=== PATIENT | female | born 1985 ===

== ENCOUNTER 2016-12-26 11:22 | Emergency (ER) | payer MEDICARE, OTHER ==
[2016-12-26 11:22] VITALS: BMI 22.6
[2016-12-26 11:41] VITALS: O2SAT 100
--- NOTE | 2016-12-26 12:24 | C.PDOC ---
History Of Present Illness Patient is a 31 y/o female, whose PMHx includes seizures, and asthma, presents to the ED for evaluation of left foot pain. Patient states she fell 1 month ago from a seizure, and was been seen by a physician recently due to persistent pain who prescribed her Percocet, and referral for MRI. Patient notes her foot MRI is scheduled for 12/28/16. However, patient states she fell again yesterday, reinjuring the same foot, which prompted her to visit ED today. Otherwise, denies any fever, numbness/weakness, or any other associated symptoms at this time. Time Seen by Provider: 12/26/16 11:50 Chief Complaint (Nursing): Lower Extremity Problem/Injury History Per: Patient History/Exam Limitations: no limitations Onset/Duration Of Symptoms: Days (1 month) Current Symptoms Are (Timing): Still Present Recent travel outside of the [place]: No Additional History Per: Patient - Ankle/Foot Description Of Injury: Fell Past Medical History Reviewed: Historical Data, Nursing Documentation, Vital Signs Vital Signs: Last Vital Signs Temp 98.0 F 12/26/16 14:18 Pulse 74 12/26/16 14:18 Resp 18 12/26/16 14:18 BP 124/80 12/26/16 14:18 Pulse Ox 100 12/26/16 14:26 - Medical History PMH: Asthma, COPD (TRACHEOSTOMY), Depression, Seizures Surgical History: Cholecystectomy - [facility] Procedures REPLACE TRACH TUBE (01/24/13) Family History: States: Unknown Family Hx - Social History Hx Tobacco Use: Yes (trying to quit, down to 4 cigarettes per day) Hx Alcohol Use: No Hx Substance Use: No - Immunization History Hx Tetanus Toxoid Vaccination: Yes Hx Influenza Vaccination: Yes (2014) Hx Pneumococcal Vaccination: Yes Review Of Systems Except As Marked, All Systems Reviewed And Found Negative. Constitutional: Negative for: Fever, Chills Musculoskeletal: Positive for: Foot Pain (left) Neurological: Negative for: Weakness, Numbness Physical Exam - Physical Exam Appears: Non-toxic, In Acute Distress (painful distress) Skin: Normal Color, Warm, Dry Respiratory: Other (trach tube in place, no signs of infection) Extremity: Normal ROM, Tenderness (diffuse tenderness to left foot), No Calf Tenderness, Capillary Refill (< 2 sec.), No Deformity, Swelling (left foot), Other (Baltazar wrap by PMD was removed) Extremity: Bilateral: Normal Color And Temperature, Normal ROM Pulses: Left Dorsalis Pedis: Normal, Right Dorsalis Pedis: Normal Neurological/Psych: Oriented x3, Normal Speech, Normal Cognition, Normal Motor, Normal Sensation ED Course And Treatment O2 Sat by Pulse Oximetry: 100 (on RA) Pulse Ox Interpretation: Normal - Other Rad Left foot x-ray X-Ray: Interpreted by Me, Viewed By Me Interpretation: No fracture or dislocation. Progress Note: Left ankle/foot x-ray ordered and reviewed. Patient was treated with Dilaudid IM in th ER. On reassessment, hector reports improvement of symptoms. Short leg splint applied by CP and checked by me. Crutches and crutch walking instructions were provided by CP. Patient was discharged home with instructions to follow up with orthopedist and to keep her MRI appointment on . Disposition - Disposition Referrals: Mark Izaguirre MD [Staff Provider] - Aaron Lylse DPM [Staff Provider] - Disposition: HOME/ ROUTINE Disposition Time: 13:53 Condition: FAIR Additional Instructions: Follow up with your PMD/Ortho. keep your appointment for MRI on 12/29/15. Return to ED if feel worse. Instructions: Foot Sprain (ED) - Clinical Impression Clinical Impression: Foot pain - PA / MANAGER NUCLEAR / Resident Statement MD/DO has reviewed & agrees with the documentation as recorded. - Scribe Statement The provider has reviewed the documentation as recorded by the Scribe Brad Quiroz All medical record entries made by the Scribe were at my direction and personally dictated by me. I have reviewed the chart and agree that the record accurately reflects my personal performance of the history, physical exam, medical decision making, and the department course for this patient. I have also personally directed, reviewed, and agree with the discharge instructions and disposition.
[2016-12-26 14:20] VITALS: BP 124/80; PULSE 74; RESP 18; TEMP 98
--- NOTE | 2016-12-26 16:57 | RAD ---
PROCEDURE: Left Ankle Radiographs. HISTORY: fall/pain COMPARISON: None FINDINGS: BONES: Normal. No fracture. JOINTS: Normal. No osteoarthritis. Ankle mortise maintained. Talar dome intact SOFT TISSUES: Normal. OTHER FINDINGS: None. IMPRESSION: No evidence of acute fracture or dislocation.
--- NOTE | 2016-12-26 17:24 | RAD ---
PROCEDURE: Left Foot Radiographs. HISTORY: pain/fall COMPARISON: None. FINDINGS: BONES: Normal. No fracture. JOINTS: Normal. SOFT TISSUES: Normal. OTHER FINDINGS: None. IMPRESSION: No evidence of acute fracture or dislocation
== END 2016-12-26 14:19 | disposition home or self-care (01) ==
LOC: C.ER 11:22
DX: M79.672 Pain in left foot (principal)
CPT/HCPCS: 73610; 73630; 96372; 99285; J1170

== ENCOUNTER 2017-05-17 15:48 | Emergency (ER) | payer MEDICARE, OTHER ==
[2017-05-17 15:48] VITALS: BMI 22.6
[2017-05-17 15:58] VITALS: RESP 18; O2SAT 98
[2017-05-17] MEDS ORDERED: Penicillin G Benzathine 1.2 Mill Unit/2 ml Syr IM ONE ×2 (16:42→16:58)
--- NOTE | 2017-05-17 16:45 | C.PDOC ---
History Of Present Illness 31 y/o female with history of asthma, COPD, and tracheostomy for 10 years presents to emergency department with complaints of sore throat, cough, and fever since yesterday. Patient reports (+) sick contacts, noting her daughter at home has similar symptoms, also present in ER today. Patient also reports vomiting today and states she has been unable to tolerate PO liquids or food due to throat pain. Otherwise, denies diarrhea, headache, chest pain, SOB, or other associated symptoms. Time Seen by Provider: 05/17/17 16:26 Chief Complaint (Nursing): ENT Problem History Per: Patient History/Exam Limitations: no limitations Onset/Duration Of Symptoms: Days Current Symptoms Are (Timing): Still Present Location Of Pain: Throat Sick Contacts (Context): Family Member(s) Associated Symptoms: Fever, Sore Throat, Cough. denies: Vomiting, Diarrhea Ear Symptoms: Bilateral: None Recent travel outside of the [place]: No Past Medical History Reviewed: Historical Data, Nursing Documentation, Vital Signs Vital Signs: Last Vital Signs Temp 98.3 F 05/17/17 15:53 Pulse 62 05/17/17 15:53 Resp 18 05/17/17 15:53 BP 93/62 L 05/17/17 15:53 Pulse Ox 98 05/17/17 18:03 - Medical History PMH: Asthma, COPD (TRACHEOSTOMY), Depression, Seizures Surgical History: Cholecystectomy - [facility] Procedures REPLACE TRACH TUBE (01/24/13) Family History: States: Unknown Family Hx - Social History Hx Tobacco Use: Yes (trying to quit, down to 4 cigarettes per day) Hx Alcohol Use: No Hx Substance Use: No - Immunization History Hx Tetanus Toxoid Vaccination: Yes Hx Influenza Vaccination: Yes (2014) Hx Pneumococcal Vaccination: Yes Review Of Systems Except As Marked, All Systems Reviewed And Found Negative. Constitutional: Positive for: Fever (resolved). Negative for: Chills ENT: Positive for: Throat Pain, Throat Swelling. Negative for: Nose Discharge Cardiovascular: Negative for: Chest Pain, Palpitations Respiratory: Positive for: Cough. Negative for: Shortness of Breath Gastrointestinal: Negative for: Nausea, Vomiting, Abdominal Pain Musculoskeletal: Negative for: Neck Pain Skin: Negative for: Rash Neurological: Negative for: Headache, Dizziness Physical Exam - Physical Exam Appears: Non-toxic, No Acute Distress Skin: Normal Color, Warm, Dry Head: Atraumatic, Normacephalic Eye(s): bilateral: Normal Inspection, PERRL, EOMI Ear(s): Bilateral: Normal Nose: Normal Oral Mucosa: Moist Throat: Erythema, Exudate, No Drooling Neck: Normal ROM, No Paracervical Tenderness, Supple, Other (tracheostomy in place, no surrounding erythema or signs of infection) Lymphatic: Adenopathy (anterior cervical) Chest: Symmetrical Cardiovascular: Rhythm Regular, No Friction Rub, No Murmur Respiratory: No Decreased Breath Sounds, No Accessory Muscle Use, No Rales, Rhonchi (scant bilaterally), No Wheezing Gastrointestinal/Abdominal: Soft, No Tenderness, No Guarding, No Rebound Back: Normal Inspection Extremity: Normal ROM, Capillary Refill (< 2 sec.) Neurological/Psych: Oriented x3, Normal Speech, Normal Cognition, Normal Motor, Normal Sensation Gait: Steady ED Course And Treatment O2 Sat by Pulse Oximetry: 98 (RA) Pulse Ox Interpretation: Normal Progress Note: Treated with Bicillin IM, Motrin, and prednisone. Medical Decision Making Medical Decision Making: The patient was evaluated by Dr. Leos at bedside who agrees with plan to treat for strep pharyngitis. Bicillin and Motrin given Disposition - Disposition Referrals: [facility] at [facility] [place] [Outside] Disposition: HOME/ ROUTINE Disposition Time: 18:01 Condition: FAIR Additional Instructions: Follow up with the medical doctor/clinic within 1-2 days without fail. Return if worsened. Prescriptions: Ibuprofen [Motrin] 600 mg PO TID #21 tab predniSONE [Prednisone] 20 mg PO BID #10 tab Instructions: Pharyngitis (ED) Forms: [facility] (Jamaican) - Clinical Impression Clinical Impression: Pharyngitis - PA / ADJUNCT PROFESSOR OF VOICE / Resident Statement MD/DO has reviewed & agrees with the documentation as recorded. - Scribe Statement The provider has reviewed the documentation as recorded by the Scribe Hakeem Ulloa All medical record entries made by the [facility] were at my direction and personally dictated by me. I have reviewed the chart and agree that the record accurately reflects my personal performance of the history, physical exam, medical decision making, and the department course for this patient. I have also personally directed, reviewed, and agree with the discharge instructions and disposition. .
[2017-05-17 18:12] VITALS: BP 100/62; PULSE 72; TEMP 98.1
== END 2017-05-17 18:12 | disposition home or self-care (01) ==
LOC: C.ER 15:48
DX: J02.0 Streptococcal pharyngitis (principal)
CPT/HCPCS: 96372; 99283; J0561

== ENCOUNTER 2018-10-03 16:36 | Outpatient (CLI) | payer MEDICARE, OTHER | END 2018-10-03 16:37 | disposition home or self-care (01) | LOC: C.RADH 16:36 | DX: M19.90 Unspecified osteoarthritis, unspecified site (principal) ==